=== PATIENT | female | born 1995 | race Caucasian/White ===

== ENCOUNTER 2017-04-27 21:02 | Emergency (ER) | payer MEDICAID ==
[2017-04-27 22:49] VITALS: BP 142/94
== END 2017-04-27 22:49 | disposition home or self-care (01) ==
LOC: ED 21:02
DX: L02.01 Cutaneous abscess of face (principal)
CPT/HCPCS: J2001

== ENCOUNTER 2017-04-28 19:58 | Emergency (ER) | payer MEDICAID ==
[~2017-04-28] VITALS: Ht 157.5 cm; Wt 96.7 kg
[2017-04-28 21:06] VITALS: BP 135/62
== END 2017-04-28 21:06 | disposition home or self-care (01) ==
LOC: ED 19:58
DX: Z09 Encounter for follow-up examination after completed treatment for conditions other than malignant neoplasm (principal); Z79.899 Other long term (current) drug therapy